=== PATIENT | male | born 1960 | race Caucasian/White ===

== ENCOUNTER 2023-11-01 15:01 | Emergency (ER) | payer OTHER, SELFPAY ==
[2023-11-01 15:26] VITALS: BP 133/71; PULSE 55; RESP 18; TEMP 36.6; O2SAT 99
[2023-11-01 15:29] VITALS: BP 133/71; PULSE 55; RESP 18; TEMP 36.6; O2SAT 99
--- NOTE | 2023-11-01 15:40 | ED.GENADULT ---
HPI - General Adult General Chief complaint: Upper Respiratory Infection Stated complaint: Cough,Congestion Time Seen by Provider: 11/01/23 15:42 Source: patient, RN notes reviewed and old records reviewed Mode of arrival: ambulatory Limitations: no limitations History of Present Illness HPI narrative: 63-year-old male patient presents to [facility] with complaints cough,congestion, and rhinorrhea for 3-4 days. patient taking [id number] medications that are improving symptoms, patient states she missed work and needs a note to return patient declining any POC testing at this time Related Data Home Medications Medication Instructions Recorded Confirmed metoprolol tartrate 25 mg tablet 12.5 mg PO DAILY 11/01/23 11/01/23 Allergies Allergy/AdvReac Type Severity Reaction Status Date / Time No Known Allergies Allergy Verified 11/01/23 15:28 Review of Systems Constitutional: Constitutional: Reports no additional constitutional complaints Eyes: Eyes: Reports no additional eye complaints ENT: Reports nasal congestion and Reports nasal discharge Cardiovascular: Cardiovascular: Reports no additional cardiovascular complaints Respiratory: Respiratory: Denies no additional respiratory complaints, Reports cough, Denies pain with cough and Denies dyspnea Neurologic: Reports system reviewed and no additional complaints, except as documented PMFSH Comments At the time of my signature, I reviewed and agree with the nursing past medical, surgical, social, and family history. There is no relevant family history pertinent to the patient complaint. Exam Const: General: cooperative, healthy appearing, no acute distress and well nourished Nutritional Appearance: well nourished Orientation/consciousness: patient oriented x3 Limitations: no limitations HENMT: Head: normal to inspection and normocephalic Ears: external ears normal, TM's normal bilaterally, mastoids normal and Abnormal EAC present Face/Nose/Sinus: normal facial exam Face and sinus: normal facial exam Mouth: Yes Normal oral and palatal mucosa present, Yes oropharynx normal and Yes moist mucous membranes Throat: posterior oropharynx normal, tonsils normal, uvula midline and no uvular edema Eyes: General: appearance normal, both eyes and all related structures Sclera: sclerae normal Pupils: Equal, round and reactive pupils present Resp: Effort & Inspection: normal respiratory effort, able to speak in complete sentences, no audible wheezes, no cough, no respiratory distress and no retractions Auscultation: clear to auscultation bilaterally, no crackles, no rales, no rhonchi and no wheezes Cardio: Rate: regular rate Rhythm: regular rhythm Skin: General skin exam: normal color and no rashes or lesions noted Neuro: General: patient oriented x3 Cranial nerves: Yes Equal, round and reactive pupils present Psych: Appearance: grossly normal Course Course Emergency Course: Some parts of this dictation were generated by voice recognition software and may contain typographical and/or grammatical inaccuracies. Level of Care: Express Care Visit Vital Signs Vital signs: Vital Signs Temperature 97.8 F 11/01/23 15:26 Pulse Rate 55 L 11/01/23 15:26 Respiratory Rate 18 11/01/23 15:26 Blood Pressure 133/71 11/01/23 15:26 Pulse Oximetry 99 11/01/23 15:26 Oxygen Delivery Room Air 11/01/23 15:26 Temperature 97.8 F 11/01/23 15:29 Pulse Rate 55 L 11/01/23 15:29 Respiratory Rate 18 11/01/23 15:29 Blood Pressure 133/71 11/01/23 15:29 Pulse Oximetry 99 11/01/23 15:29 Oxygen Delivery Room Air 11/01/23 15:29 Reviewed Medical Decision Making MDM Narrative Medical decision making narrative: Discharge instructions reviewed with patient, as well as provided in writing per nursing staff. The instructions also include specific and strict return/GO TO THE ER as well as f/u information. All questions have been answered,
== END 2023-11-01 15:47 | disposition home or self-care (01) ==
PROVIDERS: Emergency Provider Registered Nurse; PCP Family Medicine
DX: J06.9 Acute upper respiratory infection, unspecified (principal); E78.00 Pure hypercholesterolemia, unspecified; I10 Essential (primary) hypertension; K21.9 Gastro-esophageal reflux disease without esophagitis; E11.9 Type 2 diabetes mellitus without complications; Z79.84 Long term (current) use of oral hypoglycemic drugs
CPT/HCPCS: 99211; G0463